=== PATIENT | male | born 1950 | race Caucasian/White ===

== ENCOUNTER 2024-08-08 22:23 | Emergency (ER) | payer MEDICARE, SELFPAY ==
[2024-08-08 22:28] VITALS: BP 179/87; PULSE 46; RESP 16; TEMP 36.6; O2SAT 96; BMI 29.5
--- NOTE | 2024-08-08 22:32 | EKG_ITS ---
[facility] [address] [place] [address] Test Date: 2024-08-08 Pat Name: Luther Nassar Department: [facility] Room: Gender: Male Speech And Language Clinician: JACKELIN : 1950 Requested By: Order Number: [id number] Reading MD: Gianluca Platt Measurements Intervals [place] Rate: 56 P: 16 IN: 204 QRS: -39 QRSD: 106 T: -1 QT: 438 QTc: 422 Interpretive Statements NORMAL SINUS RHYTHM with pauses. Left axis deviation Pulmonary disease pattern Incomplete right bundle branch block Moderate voltage criteria for LVH, may be normal variant ( R in aVL , Irving product ) Electronically Signed On 08-11-2024 9:41:30 PST by Gianluca Platt
[2024-08-08 22:36] VITALS: PULSE 72; RESP 15; O2SAT 95
[2024-08-08 22:37] VITALS: BP 167/87; PULSE 71; RESP 15; O2SAT 95
--- NOTE | 2024-08-08 22:44 | PC.NURSE ---
pt took his BP and it was low then he checked his pulse which was low so he came to the ED denies any symptoms except that he states he feels a little confused, pt is aao x 3, Bp 176/87 and HR on monitor is 69 SR
[2024-08-08 23:00] VITALS: PULSE 72; RESP 13; O2SAT 94
[2024-08-08 23:01] VITALS: BP 145/74; PULSE 73; RESP 18; O2SAT 95
--- NOTE | 2024-08-08 23:15 | ED.ARRPALP ---
HPI - Arrhythmia/Palpitations General Chief Complaint: Arrhythmia/Palpitations Stated Complaint: HR 38 irregular BP 116/70 -130/70 Time Seen by Provider: 08/08/24 22:55 Source: patient Mode of arrival: Ambulatory History of Present Illness HPI narrative: 74-year-old male was checking his blood pressure at home, the cuff indicated that he had a heart rate of 38, he had not have any symptoms of chest pain or syncope or presyncope or weakness, no sensation of irregular heartbeat sensation, he did then check his carotid pulse and felt it seemed fairly irregular, here for further evaluation. He denies any medication changes, does not take any beta blockers or calcium channel lucille medications. No bradycardia problems in the past. He takes various supplements including berberine, multivitamin, vitamin-D, magnesium, however none are new, no changes in doses. He takes allopurinol as his only prescription medication. He denies drug or alcohol use. No recent illness symptoms. Related Data Allergies Allergy/AdvReac Type Severity Reaction Status Date / Time No Known Drug Allergies Allergy Unverified 07/22/22 16:16 Patient History Social History Smoking Status: Former smoker Smoking Status: Former smoker Exam Narrative Exam Narrative: GENERAL: Well-developed patient, in mild distress. HEAD: Atraumatic. Normocephalic. EYES: Pupils equal round and reactive. Extraocular motions intact. No scleral icterus. No injection or drainage. ENT: Nose without bleeding, purulent drainage. Throat without erythema, tonsillar hypertrophy or exudate. Airway patent. NECK: Trachea midline. Non tender CARDIOVASCULAR: Irregular rate and rhythm with soft 1/6 left sternal border murmur, no gallop or rub RESPIRATORY: Clear to auscultation. Breath sounds equal bilaterally. No wheezes, rales, or rhonchi. GASTROINTESTINAL: Abdomen soft, non-tender, nondistended. EXTREMITIES: No edema or joint tenderness. BACK: Nontender without deformity or crepitance. No flank tenderness. NEURO: AOx3. Motor functions grossly nonfocal SKIN: No rash or erythema of visible areas Initial Vital Signs Initial Vital Signs: Vital Signs Temperature 97.8 F 08/08/24 22:28 Pulse Rate 46 L 08/08/24 22:28 Respiratory Rate 16 08/08/24 22:28 Blood Pressure 179/87 H 08/08/24 22:28 Pulse Oximetry 96 08/08/24 22:28 Oxygen Delivery Method Room Air 08/08/24 22:28 Course Orders Ordered: ED Orders 08/08/24 22:26 EKG-12 Lead Stat 08/08/24 22:30 TSH [Thyroid Stimulating Hormone] Stat 08/08/24 22:38 Complete Blood Count AUTO DIFF Stat Comprehensive Metabolic Panel Stat Lipase Stat Magnesium Stat NT-proBNP (BNP-Adult 18+) Stat PTT Partial Thromboplastin Shreyas Stat Prothrombin Time INR Stat Troponin & CK Cardiac Panel Stat 08/08/24 23:15 EKG-12 Lead Stat 08/08/24 23:30 XR chest 1V Stat Vital Signs Vital signs: Vital Signs - 8 hr 08/08/24 22:28 08/08/24 22:36 08/08/24 22:37 Temperature 97.8 F Pulse Rate 46 L 72 71 Respiratory Rate 16 15 15 Blood Pressure 179/87 H Pulse Oximetry 96 95 95 Oxygen Delivery Method Room Air 08/08/24 22:37 08/08/24 23:00 08/08/24 23:01 Temperature Pulse Rate 72 73 Respiratory Rate 13 18 Blood Pressure 167/87 H Pulse Oximetry 94 95 Oxygen Delivery Method 08/08/24 23:01 08/08/24 23:30 08/08/24 23:30 Temperature Pulse Rate 75 Respiratory Rate 17 Blood Pressure 145/74 H 143/67 H Pulse Oximetry 95 Oxygen Delivery Method 08/09/24 00:00 08/09/24 00:01 08/09/24 00:01 Temperature Pulse Rate 73 74 Respiratory Rate 22 17 Blood Pressure 141/67 H Pulse Oximetry 92 Oxygen Delivery Method 08/09/24 00:30 08/09/24 00:31 08/09/24 00:31 Temperature Pulse Rate 71 75 Respiratory Rate 19 19 Blood Pressure 132/68 Pulse Oximetry 94 94 Oxygen Delivery Method 08/09/24 01:00 08/09/24 01:00 Temperature Pulse Rate 65 Respiratory Rate 12 Blood Pressure 146/67 H Pulse Oximetry 94 Oxygen Delivery Method MDM - Arrhythmia/Palpitations Lab Data Attestation: I reviewed the patient's lab results. Lab results narrative: White blood cell count 7600, hemoglobin 14.6, glucose 178. Basic metabolic panel unremarkable. LFTs unremarkable. Troponin negative. BNP negative. Magnesium 1.8 normal. TSH pending. 08/08/24 22:38 08/08/24 22:38 Labs: Lab Results 08/08/24 08/08/24 Range/Units 22:30 22:38 WBC 7.6 (4.5-11.0) X10^3/uL RBC 4.58 (4.5-5.9) X10^6/uL Hgb 14.6 (13.5-17.5) g/dL Hct 42.6 (41-53) % MCV 93.1 (80-100) fL MCH 31.9 (26-34) PG MCHC 34.3 (30-36) % RDW 12.9 (11.6-14.8) % Plt Count 178 (150-400) X10^3/uL Neut % (Auto) 43.4 L (50-75) % Lymph % (Auto) 40.5 H (25-40) % [place] % (Auto) 11.3 (3-14) % Eos % (Auto) 4.0 (2-4) % Baso % (Auto) 0.8 (0-2) % Neut # (Auto) 3300 (5892-2191) /uL Lymph # (Auto) 3100 (7115-8387) /uL [place] # (Auto) 900 (0-900) /uL Eos # (Auto) 300 (0-450) /uL Baso # (Auto) 100 (0-100) /uL PT 10.6 (9.4-12.5) SECONDS INR 0.9 (0.9-1.3) APTT 34 (25.1-36.5) SECONDS Sodium 140 (137-145) mmol/L Potassium 4.0 (3.4-5.1) mmol/L Chloride 107 (98-107) mmol/L Carbon Dioxide 20 L (22-32) mmol/L BUN 25 H (9-20) mg/dL Creatinine 0.96 (0.66-1.25) mg/dL Estimated GFR > 60 (>60) mL/min BUN/Creatinine Ratio 26.0 H (6-22) Glucose 111 H (80-110) mg/dL Calcium 9.4 (8.4-10.2) mg/dL Magnesium 1.8 (1.6-2.3) mg/dL Total Bilirubin 0.3 (0.2-1.3) mg/dL AST 36 (17-59) IU/L ALT 37 (<50) IU/L Alkaline Phosphatase 77 (38-126) U/L Total Creatine Kinase 203 H (55-170) U/L Troponin I < 0.012 (0.01-0.034) ng/mL NT-Pro-B Natriuret Pep 25 (<125) pg/mL Total Protein 7.2 (6.3-8.2) g/dL Albumin 4.6 (3.5-5.0) g/dL Globulin 2.6 (1.7-4.1) g/dL Albumin/Globulin Ratio 1.8 (1.0-2.8) Lipase 190 (23-300) U/L TSH 7.81 H (0.47-4.68) uIU/mL ECG Data Attestation: I personally reviewed and interpreted this ECG as follows: Interpretation: 2232, undetermined rhythm, incomplete right bundle branch block. [place] 204, QRS 106, QTC 422. No obvious ST segment elevation or depression changes. 2323, sinus bradycardia with rate 59, marked sinus arrhythmia with first-degree AV block, [place] 240, incomplete right bundle branch block. QRS 106, QTC 429. 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 Screening EKG and rhythm strip show intermittent pauses every few beats, net heart rate 50-60 predominant, some dip down to the 30s, seems most consistent with sinus arrhythmia and marked pauses, no definite Wenckebach like pattern, no dropped beat pattern consistent. We will contact Cardiology, rhythm strips and EKGs sent to Dr. Lobo. 0045, Case discussed with Dr. Lobo cardiology, who was able to review the rhythm strips and EKGs, believes that is most consistent with sinus arrhythmia and marked pauses, recommends admission on telemetry, echocardiogram in the morning, he can further consult. Cardiology recommendation relayed to patient, who is here alone, in [place], dog in his car, he is living on a boat as they are building a house in [facility], he does not want to stay, he will leave against medical advice, stating that he will disposition his pet dog and return tomorrow. Return precautions discussed. Left against medical advice. Discharge Plan Departure Patient Disposition: Left Against Medical Advice Clinical Impression: Bradycardia Activity Restrictions/Additional Instructions: Bradycardia noted, asymptomatic on home blood pressure cuff, while on monitor here in the department and on EKG you seemed to be having sinus arrhythmia with marked pauses, occasionally transiently down to the 30s, generally 50-60 beats per minute range, normal blood pressure, not having any associated symptoms. Case was discussed with cardiology Dr. Lobo who recommended admission for further cardiac monitoring and echocardiogram in the morning. You stated that you needed to leave to disposition your dog, had no local family or other options at this hour, you left against medical advice. Referrals: Miscellaneous,Doctor, MD [Primary Care Provider] - Stand Alone Forms: Patient Portal/API, Against Medical Advice
--- NOTE | 2024-08-08 23:23 | EKG_ITS ---
[facility] [address] [place] [address] Test Date: 2024-08-08 Pat Name: Luther Nassar Department: 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
--- NOTE | 2024-08-08 23:27 | PC.NURSE ---
EKG changes noted on monitor, pt having pauses with flutter waves noted, repeat EKG done
[2024-08-08 23:30] VITALS: BP 143/67; PULSE 75; RESP 17; O2SAT 95
--- NOTE | 2024-08-08 23:30 | DI.RAD.S_ITS ---
PROCEDURE: XR CHEST 1V INDICATIONS: chest pain TECHNIQUE: One view of the chest was acquired. COMPARISON: None. FINDINGS: Surgical changes and devices: None. Lungs and pleura: Lungs are clear. No pleural effusions or pneumothorax. Mediastinum: Mediastinal contours appear normal. Heart size is prominent. Bones and chest wall: No suspicious bony lesions. Overlying soft tissues appear unremarkable. IMPRESSION: No acute pulmonary process. Dictated by: Diana Lala M.D. on 08/08/2024 at 23:54 Approved by: Diana Lala M.D. on 08/08/2024 at 23:54
[2024-08-08 23:37] LABS: Add Manual Diff / Slide Review NO; Basophils Absolute Auto 100 /uL (0-100); Basophils Percent Auto 0.8 % (0-2); Eosinophils Absolute Auto 300 /uL (0-450); Hematocrit 42.6 % (41-53); Hemoglobin 14.6 g/dL (13.5-17.5); Lymphocytes Absolute Auto 3100 /uL (1100-4500); Lymphocytes Percent Auto 40.5 % (25-40); Mean Corpuscular HGB Conc 34.3 % (30-36); Mean Corpuscular Hemoglobin 31.9 PG (26-34); Mean Corpuscular Volume 93.1 fL (80-100); Monocytes Absolute Auto 900 /uL (0-900); Monocytes Percent Auto 11.3 % (3-14); Neutrophils Absolute Auto 3300 /uL (1500-7000); Neutrophils Percent Auto 43.4 % (50-75); Platelet Count 178 X10^3/uL (150-400); Red Blood Cell Count 4.58 X10^6/uL (4.5-5.9); Red Cell Distribution Width 12.9 % (11.6-14.8); White Blood Cell Count 7.6 X10^3/uL (4.5-11.0)
[2024-08-08 23:38] LABS: INR 0.9 (0.9-1.3); Prothrombin Time 10.6 SECONDS (9.4-12.5)
[2024-08-08 23:41] LABS: PTT Partial Thromboplastin Tim 34 SECONDS (25.1-36.5)
[2024-08-08 23:42] LABS: Alanine Aminotransferase 37 IU/L (<50); Albumin 4.6 g/dL (3.5-5.0); Albumin Globulin Ratio 1.8 (1.0-2.8); Alkaline Phosphatase 77 U/L (38-126); Aspartate Aminotransferase 36 IU/L (17-59); Bilirubin Total 0.3 mg/dL (0.2-1.3); Blood Urea Nitrogen 25 mg/dL (9-20); Calcium 9.4 mg/dL (8.4-10.2); Carbon Dioxide 20 mmol/L (22-32); Chloride 107 mmol/L (98-107); Creatine Kinase 203 U/L (55-170); Estimated Glomerular Filt Rate > 60 mL/min (>60); Globulin 2.6 g/dL (1.7-4.1); Glucose 111 mg/dL (80-110); HEMOLYSIS 20 (0-50); Lipase 190 U/L (23-300); Magnesium 1.8 mg/dL (1.6-2.3); Sodium 140 mmol/L (137-145); Total Protein 7.2 g/dL (6.3-8.2)
[2024-08-08 23:54] LABS: NT-proBNP (BNP-Adult 18+) 25 pg/mL (<125); Troponin I < 0.012 ng/mL (0.01-0.034)
--- NOTE | 2024-08-08 23:57 | PC.NURSE ---
Dr Mckeon in to evaluate pt
[2024-08-09] VITALS: PULSE 73; RESP 22; O2SAT 92
[2024-08-09 00:01] VITALS: BP 141/67; PULSE 74; RESP 17
[2024-08-09 00:30] VITALS: PULSE 71; RESP 19; O2SAT 94
[2024-08-09 00:31] VITALS: BP 132/68; PULSE 75; RESP 19; O2SAT 94
[2024-08-09 00:41] LABS: Thyroid Stimulating Hormone 7.81 uIU/mL (0.47-4.68)
[2024-08-09 01:00] VITALS: BP 146/67; PULSE 65; RESP 12; O2SAT 94
== END 2024-08-09 01:16 | disposition left against medical advice (07) ==
PROVIDERS: Emergency Provider Emergency Medicine
DX: R00.1 Bradycardia, unspecified (principal); I10 Essential (primary) hypertension; Z87.891 Personal history of nicotine dependence; I44.0 Atrioventricular block, first degree; I45.10 Unspecified right bundle-branch block; R07.9 Chest pain, unspecified
CPT/HCPCS: 36415; 71045; 80053; 82550; 83690; 83735; 83880; 84443; 84484; 85025; 85610; 85730; 93005; 99283; 99284

== ENCOUNTER 2024-08-11 10:29 | Emergency (ER) | payer MEDICARE, OTHER, SELFPAY ==
[2024-08-11] VITALS (7 sets, daily range): BP systolic 142–159; BP diastolic 77–79; PULSE 54–70; RESP 15–23; TEMP 36.7; O2SAT 94–98; BMI 29.4
--- NOTE | 2024-08-11 10:52 | DI.RAD.S_ITS ---
PROCEDURE: XR CHEST 1V INDICATIONS: chest pain TECHNIQUE: One view of the chest was acquired. COMPARISON: [facility], CR, XR CHEST 1V, 08/08/2024, 23:34. FINDINGS: Surgical changes and devices: None. Lungs and pleura: No dense airspace disease or pleural effusions Low lung volumes Mediastinum: Heart size is at the upper limit of normal, unchanged Bones and chest wall: Degenerative changes IMPRESSION: No acute radiographic abnormality on this single view study. Low lung volumes. Dictated by: Richard Whitney M.D. on 08/11/2024 at 12:14 Approved by: Richard Whitney M.D. on 08/11/2024 at 12:15
--- NOTE | 2024-08-11 10:53 | EKG_ITS ---
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
[2024-08-11 11:36] LABS: Add Manual Diff / Slide Review NO; Basophils Absolute Auto 100 /uL (0-100); Basophils Percent Auto 1.4 % (0-2); Eosinophils Absolute Auto 200 /uL (0-450); Eosinophils Percent Auto 3.8 % (2-4); Hematocrit 42.8 % (41-53); Hemoglobin 14.9 g/dL (13.5-17.5); Lymphocytes Absolute Auto 2000 /uL (1100-4500); Lymphocytes Percent Auto 36.8 % (25-40); Mean Corpuscular HGB Conc 34.7 % (30-36); Mean Corpuscular Hemoglobin 32.3 PG (26-34); Monocytes Absolute Auto 500 /uL (0-900); Neutrophils Absolute Auto 2600 /uL (1500-7000); Platelet Count 171 X10^3/uL (150-400); White Blood Cell Count 5.4 X10^3/uL (4.5-11.0)
[2024-08-11 11:42] LABS: Prothrombin Time 11.3 SECONDS (9.4-12.5)
[2024-08-11 11:45] LABS: PTT Partial Thromboplastin Tim 33 SECONDS (25.1-36.5)
[2024-08-11 11:49] LABS: Alanine Aminotransferase 35 IU/L (<50); Albumin 4.6 g/dL (3.5-5.0); Albumin Globulin Ratio 1.6 (1.0-2.8); Alkaline Phosphatase 53 U/L (38-126); Aspartate Aminotransferase 39 IU/L (17-59); BUN Creatinine Ratio 28.6 (6-22); Bilirubin Total 0.8 mg/dL (0.2-1.3); Blood Urea Nitrogen 24 mg/dL (9-20); Calcium 9.2 mg/dL (8.4-10.2); Carbon Dioxide 24 mmol/L (22-32); Chloride 106 mmol/L (98-107); Creatine Kinase 93 U/L (55-170); Estimated Glomerular Filt Rate > 60 mL/min (>60); Globulin 2.8 g/dL (1.7-4.1); Glucose 138 mg/dL (80-110); Lipase 113 U/L (23-300); Magnesium 1.8 mg/dL (1.6-2.3); Potassium 4.6 mmol/L (3.4-5.1); Sodium 137 mmol/L (137-145); Total Protein 7.4 g/dL (6.3-8.2)
[2024-08-11 11:50] LABS: HEMOLYSIS 112 (0-50)
[2024-08-11 12:01] LABS: NT-proBNP (BNP-Adult 18+) < 20 pg/mL (<125); Troponin I < 0.012 ng/mL (0.01-0.034)
--- NOTE | 2024-08-11 13:18 | ED_ITS ---
HPI - Recheck/Abnormal Lab/Rx General Chief Complaint: Recheck/Abnormal Lab/Rx Stated Complaint: Cardiology Eval Time Seen by Provider: 08/11/24 13:05 History of Present Illness HPI narrative: Patient is a 74-year-old male with heart murmur presenting today for follow-up. He was seen evaluated here August 08 he was found to have a sinus arrhythmia heart rate in the 30s. No syncopal episode. Not taking beta-blockers cardiology was consulted thought that it was a sinus arrhythmia with a long compensate pauses. At that time it was recommended he be admitted for observation tele and an echo. Patient did not want to stay and left against medical advice. Today he presents for follow up he has had no further symptoms he has been checking his heart rate has been in the 60s he thinks that the glasses of wine he drank that night may have affected his heart rate. He really has no complaints. He does not have a primary care provider. Chest pain dizziness lightheadedness or other symptoms today Related Data Allergies Allergy/AdvReac Type Severity Reaction Status Date / Time No Known Drug Allergies Allergy Unverified 07/22/22 16:16 Patient History Social History Smoking Status: Former smoker Smoking Status: Former smoker Exam Initial Vital Signs Initial Vital Signs: Vital Signs Temperature 98.1 F 08/11/24 10:41 Pulse Rate 70 08/11/24 10:41 Respiratory Rate 18 08/11/24 10:41 Blood Pressure 159/77 H 08/11/24 10:41 Pulse Oximetry 97 08/11/24 10:41 Oxygen Delivery Method Room Air 08/11/24 10:41 GENERAL: Alert well-appearing 74-year-old male HEENT: Head atraumatic,EOMI, pupils reactive, face symmetric, moist mucous membranes CARDIOVASCULAR: Regular rate and rhythm without murmurs, rubs or gallops. RESPIRATORY: Breath sounds equal bilaterally, no wheezes rales or rhonchi. ABDOMEN: Soft, nontender. Normoactive bowel sounds all 4 quadrants. No guarding or rebound. EXTREMITIES: Normal range of motion, no clubbing or edema. Neurovascularly intact NEUROLOGICAL: Alert and oriented x4.Normal gait and speech. Cranial nerves II through XII grossly intact. SKIN: Warm, dry, no laceration, no petechiae, no rashes or lesions. Course Orders Ordered: ED Orders 08/11/24 10:49 EKG-12 Lead Stat 08/11/24 10:52 XR chest 1V Stat 08/11/24 11:14 Complete Blood Count AUTO DIFF Stat Comprehensive Metabolic Panel Stat Lipase Stat Magnesium Stat NT-proBNP (BNP-Adult 18+) Stat PTT Partial Thromboplastin Shreyas Stat Prothrombin Time INR Stat Troponin & CK Cardiac Panel Stat Vital Signs Vital signs: Vital Signs - 8 hr 08/11/24 11:43 08/11/24 12:00 08/11/24 12:30 Pulse Rate 56 L 55 L 54 L Respiratory Rate 18 21 15 Blood Pressure Pulse Oximetry 94 95 96 08/11/24 13:00 08/11/24 13:30 08/11/24 13:52 Pulse Rate 56 L 60 Respiratory Rate 23 19 Blood Pressure 142/79 H Pulse Oximetry 98 98 08/11/24 13:52 Pulse Rate 55 L Respiratory Rate 23 Blood Pressure Pulse Oximetry 98 MDM - Recheck/Abnormal Lab/Rx Lab Data 08/11/24 11:14 08/11/24 11:14 Labs: Lab Results 08/11/24 Range/Units 11:14 WBC 5.4 (4.5-11.0) X10^3/uL RBC 4.60 (4.5-5.9) X10^6/uL Hgb 14.9 (13.5-17.5) g/dL Hct 42.8 (41-53) % MCV 93.0 (80-100) fL MCH 32.3 (26-34) PG MCHC 34.7 (30-36) % RDW 13.0 (11.6-14.8) % Plt Count 171 (150-400) X10^3/uL Neut % (Auto) 48.0 L (50-75) % Lymph % (Auto) 36.8 (25-40) % [place] % (Auto) 10.0 (3-14) % Eos % (Auto) 3.8 (2-4) % Baso % (Auto) 1.4 (0-2) % Neut # (Auto) 2600 (6453-8491) /uL Lymph # (Auto) 2000 (0336-0133) /uL [place] # (Auto) 500 (0-900) /uL Eos # (Auto) 200 (0-450) /uL Baso # (Auto) 100 (0-100) /uL PT 11.3 (9.4-12.5) SECONDS INR 1.0 (0.9-1.3) APTT 33 (25.1-36.5) SECONDS Sodium 137 (137-145) mmol/L Potassium 4.6 (3.4-5.1) mmol/L Chloride 106 (98-107) mmol/L Carbon Dioxide 24 (22-32) mmol/L BUN 24 H (9-20) mg/dL Creatinine 0.84 (0.66-1.25) mg/dL Estimated GFR > 60 (>60) mL/min BUN/Creatinine Ratio 28.6 H (6-22) Glucose 138 H (80-110) mg/dL Calcium 9.2 (8.4-10.2) mg/dL Magnesium 1.8 (1.6-2.3) mg/dL Total Bilirubin 0.8 (0.2-1.3) mg/dL AST 39 (17-59) IU/L ALT 35 (<50) IU/L Alkaline Phosphatase 53 (38-126) U/L Total Creatine Kinase 93 (55-170) U/L Troponin I < 0.012 (0.01-0.034) ng/mL NT-Pro-B Natriuret Pep < 20 (<125) pg/mL Total Protein 7.4 (6.3-8.2) g/dL Albumin 4.6 (3.5-5.0) g/dL Globulin 2.8 (1.7-4.1) g/dL Albumin/Globulin Ratio 1.6 (1.0-2.8) Lipase 113 (23-300) U/L Imaging Data Chest x-ray: Radiologist's Impression: PROCEDURE: XR CHEST 1V INDICATIONS: chest pain TECHNIQUE: One view of the chest was acquired. COMPARISON: [facility], , XR CHEST 1V, 08/08/2024, 23:34. FINDINGS: Surgical changes and devices: None. Lungs and pleura: No dense airspace disease or pleural effusions Low lung volumes Mediastinum: Heart size is at the upper limit of normal, unchanged Bones and chest wall: Degenerative changes IMPRESSION: No acute radiographic abnormality on this single view study. Low lung volumes. Dictated by: Richard Whitney M.D. on 08/11/2024 at 12:14 ECG Data Attestation: I personally reviewed and interpreted this ECG as follows: Prior ECG tracings: available for review Interpretation: Normal sinus rhythm rate 60 HI interval 246 QRS [address] changes improved from previous EKGs MDM Narrative Medical decision making narrative: 74-year-old male presenting to [facility] for follow up. He had bradycardia sinus arrhythmia 3 days ago. He reports complete improvement he is never passed out he has no chest pain or palpitations. It was recommended that he have an echo but at this time I do not think it is emergent. He is asymptomatic. He was checking his heart rate and blood pressure regularly he reports that his heart rate has been in the 60s now. He was trying to get a primary care provider so we talked about recommendations for that. Blood work today is overall again reassuring no leukocytosis anemia electrolyte abnormality normal troponin. At this time I feel it is reasonable for him to continue to monitor his heart rate at home and return if he develops symptoms. Discharge Plan Departure Patient Disposition: Home Clinical Impression: Bradycardia Activity Restrictions/Additional Instructions: *You have been diagnosed with asymptomatic bradycardia *What to do: At this time your heart rate is within normal limits. I do recommend they follow up with primary care. We will need Holter monitor and echocardiogram *Continue to take medications as directed *Follow up with your primary care provider in 2-3 days or call [phone] *Return to ER if you should have chest pain palpitation passing, heart rate less than 40 or any new, worsening or concerning symptoms Referrals: Mark Calderon MD [Physician] - Miscellaneous,MD Elyse [Primary Care Provider] - Marie Hendricks MD [Physician] - Briseida Jacobs MD [Physician] - Haley Ventura DO [Physician] - Elizabeth Marcano DO [Physician] - Stand Alone Forms: Patient Portal/API/Survey
== END 2024-08-11 13:56 | disposition home or self-care (01) ==
PROVIDERS: Emergency Provider Emergency Medicine
DX: R00.1 Bradycardia, unspecified (principal); R07.9 Chest pain, unspecified; Z87.891 Personal history of nicotine dependence; F10.90 Alcohol use, unspecified, uncomplicated; I44.0 Atrioventricular block, first degree; I45.10 Unspecified right bundle-branch block
CPT/HCPCS: 36415; 71045; 80053; 82550; 83690; 83735; 83880; 84484; 85025; 85610; 85730; 93005; 99283; 99284

== ENCOUNTER → 2024-08-26 07:50 | Outpatient (CLI) | payer MEDICARE, SELFPAY ==
[2024-08-26 09:02] LABS: Hemoglobin A1C% w Est Avg Glu 5.9 % (4.0-6.0)
[2024-08-26 09:18] LABS: Cholesterol 193 mg/dL (140-199); HDL Cholesterol 45 mg/dL (40-60); LDL Cholesterol Calculated 127 mg/dL (<100); Triglycerides 104 mg/dL (35-150); Uric Acid 6.9 mg/dL (3.5-8.5)
[2024-08-26 09:45] LABS: TSH w/ Reflex to FT4 4.65 uIU/mL (0.47-4.68)
[2024-08-26 09:46] LABS: Prostate Specific Antigen Scrn 2.33 ng/mL (0.1-4.0)
[2024-08-26 10:05] LABS: Vitamin B12 Reflex MMA if <400 451 pg/mL (239-931)
[2024-08-26 10:10] LABS: Hep C Virus Ab w/Reflex Quant NEGATIVE s/c (NEGATIVE)
== END ==
PROVIDERS: PCP Family Medicine; Referring Provider Family Medicine; Visit Provider Family Medicine
DX: R73.01 Impaired fasting glucose (principal); R79.89 Other specified abnormal findings of blood chemistry; Z12.5 Encounter for screening for malignant neoplasm of prostate; Z13.220 Encounter for screening for lipoid disorders; Z11.59 Encounter for screening for other viral diseases; G62.9 Polyneuropathy, unspecified; M10.9 Gout, unspecified
CPT/HCPCS: 36415; 80061; 82607; 83036; 84443; 84550; 86803; G0103

== ENCOUNTER → 2024-08-28 14:26 | Outpatient (CLI) | payer MEDICARE, OTHER, SELFPAY | LOC: CAR 14:27 | PROVIDERS: PCP Family Medicine; Referring Provider Family Medicine; Visit Provider Family Medicine | DX: R00.1 Bradycardia, unspecified (principal); I49.9 Cardiac arrhythmia, unspecified | CPT/HCPCS: 93246 ==

== ENCOUNTER → 2024-09-16 09:11 | Outpatient (CLI) | payer MEDICARE, SELFPAY ==
--- NOTE | 2024-09-16 09:12 | DI.ECHO.S_ITS ---
[facility] : : [address] : : [place] : : [address] : : Phone: [phone] Echocardiogram Report + + :Name: HANSA MARTINEZ Study Date: 09/16/2024 Height: 71 in : :Hospital ReadingLocation: Weight: 217 lb : : Gender: Male BSA: 2.2 m2 : :: 1950 Age: 74 yrs BP: 130/81 mmHg: :Reason For Study: CARDIAC ARRHTHMIA, ATRIAL FIBRILLATION : :Ordering Physician: BLIL, : :JACQUELINE Vera Performed By: Aster Manzo : :Referring: JACQUELINE KHAN : + + Interpretation Summary The left ventricle is normal in size and wall thickness. Left ventricular systolic function is borderline reduced. The ejection fraction is estimated to be 45-50%. There are no focal wall motion abnormalities. Diastolic parameters suggest a relaxation abnormality of the left ventricle, consistent with probable normal filling pressures. The right ventricle is mildly dilated. The right ventricular systolic function is normal. Pulmonary artery pressures cannot be estimated because of the lack of a measurable TR jet velocity. The left atrial size is normal. There is mild aortic stenosis. The peak aortic velocity is 2.2 m/sec. The calculated aortic valve area is 1.4 cm2. The aortic root is normal size. Procedure: A two-dimensional transthoracic echocardiogram with color flow and Doppler was performed. The study quality was technically adequate. There is no prior echocardiogram noted for this patient. The patient was in sinus bradycardia with heart rates between 48-62 bpm during the exam. Left Ventricle: The left ventricle is normal in size and wall thickness. Left ventricular systolic function is borderline reduced. The ejection fraction is estimated to be 45-50%. There are no focal wall motion abnormalities. Diastolic parameters suggest a relaxation abnormality of the left ventricle, consistent with probable normal filling pressures. Right Ventricle: The right ventricle is mildly dilated. The right ventricular systolic function is normal. Atria: The left atrial size is normal. Right atrial size is normal. There is no Doppler evidence for an interatrial shunt. Mitral Valve: The mitral valve leaflets appear mildly thickened, but open well. There is trace mitral regurgitation. Aortic Valve: The aortic valve is moderately calcified. There is mildly reduced leaflet mobility. There is mild aortic stenosis. The peak aortic velocity is 2.2 m/sec. The aortic valve mean gradient is 10.5 mmHg. The calculated aortic valve area is 1.4 cm2. There is trace aortic regurgitation. Tricuspid Valve: The tricuspid valve leaflets are thin and pliable. No tricuspid regurgitation. Pulmonary artery pressures cannot be estimated because of the lack of a measurable TR jet velocity. Pulmonic Valve: The pulmonic valve leaflets are thin and pliable; valve motion is normal. There is trace pulmonic regurgitation. Great Vessels: The aortic root is normal size. The dimensions of the ascending aorta are normal. The inferior vena cava was not well visualized. Pericardium/ Pleura There is no pericardial effusion. There is no pleural effusion. MMode/2D Measurements & Calculations LVIDd: 5.0 cm LVOT diam: 2.2 cm LVIDs: 3.3 cm Ao root diam: 3.1 cm FS: 34.2 % asc Aorta Diam: 2.9 cm EPSS: 1.4 cm Ao Arch Diam (Prox Trans): 2.8 cm IVSd: 0.96 cm LVPWd: 0.67 cm LV arredondo. diameter/BSA (cm/m^2): 2.3 LV sys. diameter/BSA (cm/m^2): 1.5 LA A2 area: 18.0 cm2 RA long axis: 5.2 cm LA A4 area: 16.5 cm2 RA area: 16.4 cm2 LA length (vol): 5.1 cm RA vol: 43.8 ml LA vol: 49.8 ml RA : 20.1 ml/m2 LA vol index: 22.8 ml/m2 RVD1 (basal): 4.2 cm RVD2 (mid): 3.6 cm TAPSE: 2.1 cm Doppler Measurements & Calculations Ao V2 max: 220.5 cm/sec LVOT Max Cristi: 81.7 cm/sec Ao V2 mean: 151.6 cm/sec LV V1 max P.7 mmHg Ao max P.4 mmHg LV V1 VTI: 20.0 cm Ao mean P.5 mmHg SATISH(I,D): 1.4 cm2 Ao V2 VTI: 52.0 cm SATISH(V,D): 1.4 cm2 sev ratio: 0.39 SATISH indexed to BSA (cm^2/m^2): 0.65 MV E max cristi: 59.0 cm/sec PA V2 max: 127.4 cm/sec MV A max cristi: 67.6 cm/sec PA V2 mean: 94.9 cm/sec MV E/A: 0.87 PA mean P.9 mmHg Med Peak E' Cristi: 6.2 cm/sec PA pr(Accel): 25.1 mmHg E/E' med: 9.6 Lat Peak E' Cristi: 8.2 cm/sec E/E' lat: 7.2 E/e' average: 8.4 MV dec time: 0.21 sec SV(LVOT): 73.5 ml Reading Physician:06:08 PM
--- NOTE | 2024-09-16 09:12 | DI.US.S_ITS ---
PROCEDURE: US ABD AORTA ANEURYSM SCREEN INDICATIONS: FORMER SMOKER TECHNIQUE: Real time scanning was performed of the aorta and iliac arteries, with image documentation. COMPARISON: None. FINDINGS: Aorta: Proximal aortic diameter measures 2.9 cm. Mid-aorta measures 2.0 cm. Distal aortic diameter is 2.1 cm. Iliac arteries: Right common iliac artery measures 1.2 cm. Left common iliac artery measures 1.3 cm. IMPRESSION: No aortic aneurysm. 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 Dictated by: Leno Hyde M.D. on 09/16/2024 at 12:52 Approved by: Leno Hyde M.D. on 09/16/2024 at 12:53
== END ==
PROVIDERS: PCP Family Medicine; Referring Provider Family Medicine; Visit Provider Family Medicine
DX: I35.0 Nonrheumatic aortic (valve) stenosis (principal); I49.9 Cardiac arrhythmia, unspecified; R01.1 Cardiac murmur, unspecified; Z13.6 Encounter for screening for cardiovascular disorders; R00.1 Bradycardia, unspecified; Z87.891 Personal history of nicotine dependence; I77.811 Abdominal aortic ectasia
CPT/HCPCS: 76706; 93306

== ENCOUNTER → 2025-01-05 13:48 | Outpatient (CLI) | payer MEDICARE, SELFPAY ==
--- NOTE | 2025-01-05 13:50 | DI.ECHO.S_ITS ---
[place] [facility]+ [facility] : : [address] : : [place] : : [id number] : : Phone: [phone] Echocardiogram Report + + :Name: HANSA MARTINEZ Study Date: 01/05/2025 Height: 71 in : :[facility] ReadingLocation: Weight: 234 lb : : Gender: Male BSA: 2.3 m2 : :: 1950 Age: 74 yrs BP: 126/72 mmHg: :Reason For Study: Heart Failure : :Ordering Physician: SONIA ROTH Performed By: Linh Thakkar : :Referring: SONIA ROTH : + + Interpretation Summary 1. The left ventricular contractility is normal. Estimated ejection fraction is greater than 55% with no segmental wall motion abnormalities. No LVH. Normal diastolic function. 2. The right ventricular contractility is normal. 3. All cardiac chambers are normal size. 4. Mild aortic valvular stenosis with peak velocity of 2 m/s with mean gradient of 10 mmHg. Diminished index of 0.32. 5. No obvious intracardiac shunts. 6. No obvious intra masses nor thrombi. 7. No hemodynamically significant pericardial effusion. 8. Low right-sided filling pressures. Conclusion: Normal biventricular function with mild aortic valvular stenosis. When compared with previous echocardiogram, there is improvement of the left ventricular systolic function. Procedure: A two-dimensional transthoracic echocardiogram with color flow and Doppler was performed. The study quality was technically adequate. Comparison is made with the echocardiogram of 3-4-25. The heart rate ranged between 63-65 bpm during the study. Left Ventricle: The left ventricle is normal in size and wall thickness. The ejection fraction is estimated to be 55-60%. Diastolic parameters suggest probable normal left ventricular diastolic function and normal filling pressures. Right Ventricle: The right ventricle grossly appears normal in size with probable normal systolic function. Atria: The left atrial size is normal. Right atrial size is normal. The interatrial septum grossly appears intact with no obvious evidence for an atrial septal defect. Mitral Valve: The mitral valve leaflets appear mildly thickened, but open well. There is trace mitral regurgitation. Aortic Valve: The aortic valve is trileaflet. The aortic valve is mildly calcified. There is moderately reduced leaflet mobility. The aortic valve area is 1.7 centimeters squared by planimetry. The calculated aortic valve area is 1.2 cm2. The peak aortic velocity is 2.0 m/sec. The peak aortic velocity on the previous exam was 2.2 m/sec. The aortic valve mean gradient is 10 mmHg. There is trace aortic regurgitation. Tricuspid Valve: The tricuspid valve leaflets are thin and pliable. No tricuspid regurgitation. Pulmonic Valve: The pulmonic valve is not well seen, but is grossly normal. There is no pulmonic valvular regurgitation. Great Vessels: The aortic root is normal size. The ascending aorta is normal in size. The aortic arch is normal in size. The IVC is of normal diameter and collapses greater than 50% with a sniff. This suggests a low right atrial pressure of 3 mm Hg. Pericardium/ Pleura There is no pericardial effusion. There is no pleural effusion. MMode/2D Measurements & Calculations LVIDd: 4.3 cm LVOT diam: 2.2 cm LVIDs: 3.0 cm Ao root diam: 3.0 cm FS: 30.0 % asc Aorta Diam: 3.0 cm EPSS: 0.89 cm Ao Arch Diam (Prox Trans): 2.6 cm IVSd: 1.0 cm LVPWd: 0.94 cm LV arredondo. diameter/BSA (cm/m^2): 1.9 LV sys. diameter/BSA (cm/m^2): 1.3 LA A2 area: 20.9 cm2 RA long axis: 5.5 cm LA A4 area: 22.8 cm2 RA area: 17.1 cm2 LA length (vol): 5.6 cm RA vol: 45.6 ml LA vol: 72.7 ml RA : 20.2 ml/m2 LA vol index: 32.3 ml/m2 TAPSE: 1.9 cm Doppler Measurements & Calculations Ao V2 max: 204.1 cm/sec LVOT Max Cristi: 65.9 cm/sec Ao V2 mean: 144.6 cm/sec LV V1 max P.7 mmHg Ao max P.7 mmHg LV V1 VTI: 15.4 cm Ao mean P.7 mmHg SATISH(I,D): 1.2 cm2 Ao V2 VTI: 47.4 cm SATISH(V,D): 1.2 cm2 sev ratio: 0.32 SATISH indexed to BSA (cm^2/m^2): 0.53 MV E max cristi: 55.9 cm/sec PA V2 max: 88.2 cm/sec MV A max cristi: 65.6 cm/sec PA V2 mean: 53.1 cm/sec MV E/A: 0.85 PA mean P.4 mmHg Med Peak E' Cristi: 5.0 cm/sec PA pr(Accel): 34.5 mmHg E/E' med: 11.2 Lat Peak E' Cristi: 5.8 cm/sec E/E' lat: 9.7 E/e' average: 10.4 MV dec time: 0.27 sec SV(OT): 56.5 ml Reading Physician:DRISS
== END ==
PROVIDERS: PCP Family Medicine; Referring Provider Internal Medicine; Visit Provider Internal Medicine
DX: I50.22 Chronic systolic (congestive) heart failure (principal)
CPT/HCPCS: 93306

== ENCOUNTER → 2025-06-23 08:29 | Outpatient (CLI) | payer MEDICARE, SELFPAY ==
--- NOTE | 2025-06-23 08:30 | DI.CT.S_ITS ---
PROCEDURE: CT ABDOMEN PELVIS W CON INDICATIONS: Abdominal pain TECHNIQUE: After the administration of intravenous contrast, axial sections acquired from the lung bases to the pubic symphysis. Coronal and sagittal reformats were performed. For radiation dose reduction, the following was used: automated exposure control, adjustment of mA and/or kV according to patient size. COMPARISON: None. FINDINGS: Image quality: Diagnostic. Lower Chest: Mild distal esophageal wall thickening and small hiatal hernia. Heart size is mildly enlarged, no pericardial effusion. Bilateral lung bases are clear. ABDOMEN: Liver: No solid mass. Gallbladder: Gallbladder is surgically absent. Biliary ducts: No biliary dilation. Pancreas: No ductal dilation. Spleen: Size is within normal limits. Adrenal Glands: No adrenal nodules. Kidneys and Ureters: No hydronephrosis. No solid mass. No complex renal cystic lesion which requires follow up. Stomach and Bowel: Normal colonic caliber, without significant wall thickening. Appendix is visualized and is within normal limits. No abscess collection. Mild sigmoid diverticulosis without CT evidence of acute diverticulitis. Peritoneum: No abnormal intraperitoneal fluid. No free air. Ventral Wall: No significant ventral hernia. Abdominal Nodes: No retroperitoneal or mesenteric adenopathy by size criteria. Vessels: Aorta and inferior vena cava are normal in size. PELVIS: Pelvic Organs: Enlarged prostate gland with mass effect on floor of urinary bladder. Bladder: No bladder wall thickening, accounting for underdistention. Pelvic Nodes: No enlarged lymph nodes. Miscellaneous: No inguinal hernias are seen. Bones: No aggressive osseous abnormality. IMPRESSION: 1. No acute inflammatory process is seen in abdomen or pelvis. No free fluid or free air. 2. Mild distal esophageal wall thickening and small hiatal hernia which may represent esophagitis secondary to reflux suggest clinical correlation. 3. Other chronic findings as above. Dictated by: Semaj Roth M.D. on 06/23/2025 at 17:18 Approved by: Semaj Roth M.D. on 06/23/2025 at 17:21
[2025-06-23 08:51] LABS: Estimated Glomerular Filt Rate > 60 mL/min (>60)
== END ==
LOC: CT 08:30
PROVIDERS: PCP Family Medicine; Referring Provider Family Medicine; Visit Provider Surgery
DX: K57.30 Diverticulosis of large intestine without perforation or abscess without bleeding (principal); R10.9 Unspecified abdominal pain; I51.7 Cardiomegaly; N40.0 Benign prostatic hyperplasia without lower urinary tract symptoms; K44.9 Diaphragmatic hernia without obstruction or gangrene; Z90.49 Acquired absence of other specified parts of digestive tract
CPT/HCPCS: 36415; 74177; 82565; Q9967